=== PATIENT | male | born 1955 | race Caucasian/White ===

== ENCOUNTER 2019-08-25 20:27 | Observation (INO) | payer MEDICARE ==
[~2019-08-25] VITALS: Ht 175.3 cm; Wt 79.2 kg
--- NOTE | 2019-08-25 20:46 | NUR ---
FULLY MONITORED. SR, BBB, W/ PVC. RATE : 90
[2019-08-25 21:48] LABS: BASOPHILS # (AUTO) 0.04 x10^3/uL (0-0.1); BASOPHILS % (AUTO) 1 % (0-1); EOSINOPHILS # (AUTO) 0.19 x10^3/uL (0-0.4); EOSINOPHILS % (AUTO) 3 % (1-7); LYMPHOCYTES # (AUTO) 1.39 x10^3/uL (1-3.4); LYMPHOCYTES % (AUTO) 21 % (22-44); MD NO; MEAN CORPUSCULAR HEMOGLOBIN 34.6 pg (27.5-34.5); MEAN CORPUSCULAR HGB CONC 34.1 g/dL (33.2-36.2); MEAN CORPUSCULAR VOLUME 101.6 fL (81-97); MEAN PLATELET VOLUME 7.6 fL (7.4-10.4); MONOCYTES # (AUTO) 1.03 x10^3/uL (0.2-0.8); MONOCYTES % (AUTO) 16 % (2-9); NEUTROPHILS # (AUTO) 4.03 x10^3/uL (1.8-6.8); NEUTROPHILS % (AUTO) 60 % (42-75); PLATELET COUNT 231 x10^3/uL (130-400); RED CELL DISTRIBUTION WIDTH 13.7 % (9.4-14.8)
--- NOTE | 2019-08-25 21:55 | NUR ---
ROUNDS COMPLETED. NO DISTRES. S.O. AT THE BEDSIDE. CALL LIGHT IN REACH.
[2019-08-25 21:59] LABS: ALANINE AMINOTRANSFERASE 35 U/L (12-78); ALBUMIN 3.7 g/dL (3.4-5.0); ANION GAP 7 mmol/L (5-15); CHLORIDE 108 mmol/L (98-107); CREATININE 1.07 mg/dL (0.7-1.3)
[2019-08-25 22:03] LABS: ALKALINE PHOSPHATASE 65 U/L (45-117); BILIRUBIN,TOTAL 0.4 mg/dL (0.2-1.0); TOTAL PROTEIN 7.2 g/dL (6.4-8.2); TROPONIN I < 0.015 ng/mL (0.000-0.045)
--- NOTE | 2019-08-25 22:28 | NUR ---
UP TO THE BR TO VOID. BACK TO BED. AMB W/O DIFF. NO DISTRESS.
--- NOTE | 2019-08-25 23:32 | NUR ---
TO BE ADMITTED. NO DISTRESS. IV STARTED. CALL LIGHT IN REACH. DENIES NEEDS.
[2019-08-26] MEDS ORDERED: BISACODYL 10 MG SUPP PR PRN
[2019-08-26] MEDS ORDERED: LIDODERM 5% PATCH TD PRN
[2019-08-26] MEDS ORDERED: NITROGLYCERIN 0.4 MG BOTTLE (25 TABS) SL PRN
[2019-08-26] MEDS ORDERED: TEMAZEPAM 15 MG CAPSULE PO PRN
[2019-08-26] MEDS ORDERED: ENOXAPARIN 40 MG/0.4 ML SQ SCH
[2019-08-26] MEDS ORDERED: ACETAMINOPHEN 325 MG TABLET PO PRN
[2019-08-26 00:10] VITALS: BP 125/88
[2019-08-26 03:43] LABS: BASOPHILS # (AUTO) 0.06 x10^3/uL (0-0.1); BASOPHILS % (AUTO) 1 % (0-1); EOSINOPHILS % (AUTO) 3 % (1-7); LYMPHOCYTES # (AUTO) 1.76 x10^3/uL (1-3.4); LYMPHOCYTES % (AUTO) 27 % (22-44); MD NO; MEAN CORPUSCULAR HEMOGLOBIN 34.5 pg (27.5-34.5); MEAN CORPUSCULAR VOLUME 101.5 fL (81-97); MEAN PLATELET VOLUME 7.6 fL (7.4-10.4); MONOCYTES % (AUTO) 14 % (2-9); NEUTROPHILS # (AUTO) 3.52 x10^3/uL (1.8-6.8); NEUTROPHILS % (AUTO) 55 % (42-75); PLATELET COUNT 233 x10^3/uL (130-400); RED BLOOD COUNT 4.72 x10^6/uL (4.38-5.82); RED CELL DISTRIBUTION WIDTH 13.8 % (9.4-14.8)
[2019-08-26 03:56] LABS: ANION GAP 5 mmol/L (5-15); CALCIUM 8.7 mg/dL (8.5-10.1); CHLORIDE 109 mmol/L (98-107); CREATININE 0.87 mg/dL (0.7-1.3)
[2019-08-26 04:01] LABS: TROPONIN I < 0.015 ng/mL (0.000-0.045)
[2019-08-26 08:05] VITALS: BP 118/75
[2019-08-26] MEDS ORDERED: REGADENOSON 0.4 MG/5 ML SYRINGE ONE (08:51)
[2019-08-26 11:57] LABS: TROPONIN I < 0.015 ng/mL (0.000-0.045)
[2019-08-26 13:19] VITALS: BP 113/76
== END 2019-08-26 16:55 | disposition home or self-care (01) ==
LOC: ED 23:56 → INTOOBSV 23:59 → 5SO 23:59 → DCLOUNGE 08-26 16:43
PROVIDERS: ADMIT Internal Medicine; ATTEND Family Medicine
DX: R07.89 Other chest pain (principal); R06.00 Dyspnea, unspecified; R00.2 Palpitations; R06.02 Shortness of breath; D75.89 Other specified diseases of blood and blood-forming organs; I45.10 Unspecified right bundle-branch block; Z87.891 Personal history of nicotine dependence
CPT/HCPCS: 36415; 71045; 78452; 80048; 80053; 83735; 83880; 84100; 84443; 84484; 85025; 93005; 93017; 96372; 99284; A9502; C9898; G0378; J1650; J2785